=== PATIENT | female | born 1935 | race Caucasian/White ===

== ENCOUNTER 2017-01-02 00:05 | Inpatient (IN) | payer MEDICARE ==
[~2017-01-02] VITALS: Ht 149.9 cm; Wt 77.0 kg
[~2017-01-02 00:05] MED LIST: AZAT50TA35 PO; PRED10 PO; SPIR25 PO
[2017-01-02 00:18] LABS: GLUCOSE,POINT OF CARE 120 MG/DL (70-110)
[2017-01-02] MEDS ORDERED: CLON.5 PO (00:23)
[2017-01-02] MEDS ORDERED: WARF2.5 PO (00:23)
[2017-01-02] MEDS ORDERED: IPRA3AMP4 NEB (00:23)
[2017-01-02] MEDS ORDERED: AMIO200T44 PO (00:23)
[2017-01-02] MEDS ORDERED: FOLI1 PO (00:23)
[2017-01-02] MEDS ORDERED: ATOR40TA28 PO (00:23)
[2017-01-02] MEDS ORDERED: DOXY100C PO (00:23)
[2017-01-02] MEDS ORDERED: PERID15L MM (00:23)
[2017-01-02] MEDS ORDERED: PYRI50 PO (00:23)
[2017-01-02] MEDS ORDERED: ASCO500 PO (00:23)
[2017-01-02] MEDS ORDERED: CYAN500 PO (00:23)
[2017-01-02] MEDS ORDERED: FAMO20 PO (00:23)
[2017-01-02] MEDS ORDERED: FERR-89 PO (00:23)
[2017-01-02] MEDS ORDERED: METO25 PO (00:23)
[2017-01-02 01:24] LABS: BASOPHILS % (AUTO) 0.3 % (0.0-2.0); EOSINOPHILS % (AUTO) 0.4 % (1.0-6.0); HEMATOCRIT 21.2 % (36-46); HEMOGLOBIN 7.2 g/dL (12.0-16.0); LYMPHOCYTES % (AUTO) 15.5 % (22.0-44.0); MEAN CORPUSCULAR HEMOGLOBIN 31.6 pg (26.0-34.0); MEAN CORPUSCULAR VOLUME 93 fL (80-100); MONOCYTES # (AUTO) 0.5 K/uL (0.1-1.0); MONOCYTES % (AUTO) 8.7 % (2.0-9.0); NEUTROPHILS # (AUTO) 4.7 K/uL (1.8-7.7); NEUTROPHILS % (AUTO) 75.1 % (40.0-70.0); PLATELET COUNT (AUTO) 107 K/uL (150-450); RED BLOOD CELL COUNT(AUTO) 2.29 MIL/uL (4.00-5.20); RED CELL DISTRIBUTION WIDTH 20.2 % (11.5-14.5); WHITE BLOOD COUNT (AUTO) 6.3 K/uL (4.5-11.0)
[2017-01-02 01:37] LABS: PROTHROMBIN TIME 20.7 SEC (9.4-11.6)
[2017-01-02 01:51] LABS: B-TYPE NATRIURETIC PEPTIDE 485 pg/mL (0-100)
[2017-01-02 01:54] LABS: ALANINE AMINOTRANSFERASE 38 U/L (12-78); ALBUMIN 2.2 g/dL (3.4-5.0); ANION GAP 0 mmol/L (8-16); ASPARTATE AMINOTRANSFERASE 51 U/L (15-37); BILIRUBIN,TOTAL 0.3 mg/dL (0.1-1.0); CALCIUM, TOTAL 8.8 mg/dL (8.8-10.5); CHLORIDE 96 mmol/L (98-107); CREATININE 0.55 mg/dL (0.60-1.30); GLOMERULAR FILTR. RATE CALC > 60 mL/min (>60); POTASSIUM 4.6 mmol/L (3.5-5.1); SODIUM SERUM 137 mmol/L (136-145); TOTAL PROTEIN, SERUM 7.8 g/dL (6.4-8.2); UREA NITROGEN, BLOOD 11 mg/dL (7-18)
[2017-01-02 01:55] LABS: CARBON DIOXIDE 41 mmol/L (22-29)
[2017-01-02] MEDS ORDERED: IPRATROPIUM BROMIDE 0.5 MG/2.5 ML NEB SOLUTION NEB ONE (02:15)
[2017-01-02] MEDS ORDERED: ALBUTEROL SULFATE 5 MG/ML 20 ML NEB SOLN [BULK] NEB ONE (02:15)
[2017-01-02] MEDS ORDERED: 0.9% SODIUM CHLORIDE 5 ML NEB SOLUTION NEB ONE ×2 (02:24)
[2017-01-02] MEDS ORDERED: ALBUTEROL SULFATE 2.5 MG/0.5 ML NEB SOLUTION NEB ONE (02:30)
[2017-01-02 02:49] LABS: ABG A-A DIFF O2 93.3 mmHg (10-20.0); ABG BASE EXCESS 16.2 mmol/L (-2.0-3.0); ABG HCO3 37.8 mmol/L (22.0-26.0); ABG OXYHEMOGLOBIN 95.7 % (94.0-100.0); ABG PH 7.352 (7.35-7.450); TEMPERATURE, FAHRENHEIT, BG 98.6 FAHREN (96.0-98.6)
[2017-01-02 02:50] LABS: ABG PCO2 77 mmHg (35-45); ALLEN TEST, BLOOD GAS Positive
[2017-01-02] MEDS ORDERED: SODIUM CHLORIDE 0.9% 100 ML ONE (02:51)
[2017-01-02] MEDS ORDERED: IOVERSOL 320 MG/ML 100 ML VIAL ONE (02:51)
[2017-01-02] MEDS ORDERED: NITROGLYCERIN 2% (1 GM=INCH) PACKET TP ONE (03:00)
[2017-01-02] MEDS ORDERED: FUROSEMIDE 40 MG/4 ML VIAL IVP ONE (03:00)
[2017-01-02] MEDS ORDERED: LEVOFLOXACIN 750 MG/D5% WATER 150 ML IV ONE (03:00)
[2017-01-02] MEDS ORDERED: ACETAMINOPHEN 325 MG TABLET PO PRN (05:15)
[2017-01-02] MEDS ORDERED: 0.9% SODIUM CHLORIDE 10 ML SYRINGE IVP PRN ×2 (05:15→08:30)
[2017-01-02] MEDS ORDERED: ONDANSETRON HCL 4 MG/2 ML VIAL IVP PRN (05:15)
[2017-01-02] MEDS ORDERED: AMIODARONE HCL 200 MG TABLET PO ONE (05:45)
[2017-01-02] MEDS ORDERED: ALBUTEROL SULFATE 2.5 MG/0.5 ML NEB SOLUTION NEB SCH (07:00)
[2017-01-02] MEDS ORDERED: IPRATROPIUM BROMIDE 0.5 MG/2.5 ML NEB SOLUTION NEB SCH (07:00)
[2017-01-02 07:37] LABS: GLUCOSE,POINT OF CARE 100 MG/DL (70-110)
[2017-01-02] MEDS ORDERED: OxyCODONE HCL/ACETAMINOPHEN 5-325 MG TABLET PO PRN ×2 (08:30)
[2017-01-02] MEDS ORDERED: MAGNESIUM HYDROXIDE SUSPENSION 30 ML UDCUP PO PRN (08:30)
[2017-01-02] MEDS: METOPROLOL TARTRATE 25 MG TABLET PO SCH ×2 (09:00→20:15)
[2017-01-02] MEDS: PANTOPRAZOLE SODIUM 40 MG/VIAL IVP SCH (09:18)
[2017-01-02] MEDS: FUROSEMIDE 40 MG/4 ML VIAL IVP SCH (09:18)
[2017-01-02] MEDS: CHLORHEXIDINE GLUCONATE 0.12% 15 ML UDCUP ORAL RINSE MM SCH ×2 (09:19→20:15)
[2017-01-02] MEDS: DOCUSATE SODIUM 100 MG CAPSULE PO SCH ×2 (09:19→20:15)
[2017-01-02] MEDS: FOLIC ACID 1 MG TABLET PO SCH (09:19)
[2017-01-02] MEDS: CYANOCOBALAMIN 500 MCG TABLET PO SCH (09:20)
[2017-01-02] MEDS: PYRIDOXINE HCL 50 MG TABLET PO SCH (09:20)
[2017-01-02] MEDS: FAMOTIDINE 20 MG TABLET PO SCH ×2 (09:20→20:14)
[2017-01-02] MEDS: ASCORBIC ACID 500 MG TABLET PO SCH ×2 (09:23→20:15)
[2017-01-02] MEDS: CefTRIAXone 1 GM/DEXTROSE 50 ML IV SCH (10:04)
[2017-01-02 10:12] VITALS: BP 111/66
[2017-01-02] MEDS ORDERED: SODIUM CHLORIDE 0.9% 50 ML ONE (10:23)
[2017-01-02 11:20] VITALS: BP 103/52
[2017-01-02 15:58] VITALS: BP 123/57
[2017-01-02] MEDS: ClonazePAM 0.5 MG TABLET PO PRN ×2 (17:39→21:46)
[2017-01-02] MEDS: FERROUS SULFATE 325 MG EC TABLET PO SCH (17:39)
[2017-01-02 19:31] VITALS: BP 120/53
[2017-01-02] MEDS: ATORVASTATIN CALCIUM 40 MG TABLET PO SCH (20:14)
[2017-01-02] MEDS: WARFARIN SODIUM 2.5 MG TABLET PO SCH (20:15)
[2017-01-02] MEDS ORDERED: PNEUMOCOCCAL VACCINE POLYVALENT 0.5 ML VIAL [PPSV23] IM ONE (20:45)
[2017-01-02 23:16] VITALS: BP 120/55
[2017-01-03] MEDS: ClonazePAM 0.5 MG TABLET PO PRN ×2 (02:31→14:19)
[2017-01-03 04:07] VITALS: BP 134/53
[2017-01-03 05:08] LABS: GLUCOSE,POINT OF CARE 105 MG/DL (70-110)
[2017-01-03 05:18] LABS: GLUCOSE,POINT OF CARE 110 MG/DL (70-110)
[2017-01-03 06:54] LABS: BASOPHILS # (AUTO) 0.06 K/uL (0.00-0.20); BASOPHILS % (AUTO) 0.8 % (0.0-2.0); EOSINOPHILS # (AUTO) 0.07 K/uL (0.00-0.70); EOSINOPHILS % (AUTO) 0.97 % (1.0-6.0); HEMATOCRIT 24.3 % (36-46); HEMOGLOBIN 8.2 g/dL (12.0-16.0); LYMPHOCYTES # (AUTO) 1.1 K/uL (1.0-4.8); LYMPHOCYTES % (AUTO) 14.6 % (22.0-44.0); MEAN CORPUSCULAR HEMOGLOBIN 30.8 pg (26.0-34.0); MEAN CORPUSCULAR HGB CONC 33.8 G/dL (31.0-37.0); MEAN CORPUSCULAR VOLUME 91 fL (80-100); MONOCYTES # (AUTO) 0.5 K/uL (0.1-1.0); MONOCYTES % (AUTO) 7.3 % (2.0-9.0); NEUTROPHILS # (AUTO) 5.7 K/uL (1.8-7.7); NEUTROPHILS % (AUTO) 76.4 % (40.0-70.0); PLATELET COUNT (AUTO) 141 K/uL (150-450); RED BLOOD CELL COUNT(AUTO) 2.67 MIL/uL (4.00-5.20); RED CELL DISTRIBUTION WIDTH 20.4 % (11.5-14.5); WHITE BLOOD COUNT (AUTO) 7.4 K/uL (4.5-11.0)
[2017-01-03 07:32] LABS: ANION GAP 5 mmol/L (8-16); CARBON DIOXIDE 36 mmol/L (22-29); CHLORIDE 96 mmol/L (98-107); CREATININE 0.56 mg/dL (0.60-1.30); GLOMERULAR FILTR. RATE CALC > 60 mL/min (>60); POTASSIUM 3.7 mmol/L (3.5-5.1); SODIUM SERUM 137 mmol/L (136-145); UREA NITROGEN, BLOOD 8 mg/dL (7-18)
[2017-01-03 08:15] VITALS: BP 137/97
[2017-01-03] MEDS: CefTRIAXone 1 GM/DEXTROSE 50 ML IV SCH (09:21)
[2017-01-03] MEDS: CHLORHEXIDINE GLUCONATE 0.12% 15 ML UDCUP ORAL RINSE MM SCH ×2 (09:21→21:37)
[2017-01-03] MEDS: PYRIDOXINE HCL 50 MG TABLET PO SCH (09:22)
[2017-01-03] MEDS: FOLIC ACID 1 MG TABLET PO SCH (09:22)
[2017-01-03] MEDS: FERROUS SULFATE 325 MG EC TABLET PO SCH ×2 (09:22→18:00)
[2017-01-03] MEDS: PANTOPRAZOLE SODIUM 40 MG/VIAL IVP SCH (09:22)
[2017-01-03] MEDS: FAMOTIDINE 20 MG TABLET PO SCH ×2 (09:22→21:37)
[2017-01-03] MEDS: CYANOCOBALAMIN 500 MCG TABLET PO SCH (09:22)
[2017-01-03] MEDS: FUROSEMIDE 40 MG/4 ML VIAL IVP SCH (09:23)
[2017-01-03] MEDS: DOCUSATE SODIUM 100 MG CAPSULE PO SCH ×2 (09:23→21:37)
[2017-01-03] MEDS: ASCORBIC ACID 500 MG TABLET PO SCH ×2 (09:23→21:37)
[2017-01-03] MEDS: METOPROLOL TARTRATE 25 MG TABLET PO SCH ×2 (09:24→21:36)
[2017-01-03] MEDS: AMIODARONE HCL 200 MG TABLET PO SCH (09:24)
[2017-01-03 10:15] LABS: RBC MORPHOLOGY COMMENT ABNORMAL RBC MORPH
[2017-01-03] MEDS ORDERED: IPRATROPIUM BROMIDE 0.5 MG/2.5 ML NEB SOLUTION NEB PRN ×2 (11:00→15:00)
[2017-01-03] MEDS ORDERED: ALBUTEROL SULFATE 2.5 MG/0.5 ML NEB SOLUTION NEB PRN ×2 (11:00→15:00)
[2017-01-03 11:50] VITALS: BP 157/56
[2017-01-03] MEDS: AZITHROMYCIN 500 MG/NS 250 ML IV SCH (12:17)
[2017-01-03] MEDS ORDERED: IPRATROPIUM BROMIDE 0.5 MG/2.5 ML NEB SOLUTION NEB SCH (14:00)
[2017-01-03] MEDS: ALBUTEROL SULFATE 2.5 MG/0.5 ML NEB SOLUTION NEB SCH ×2 (14:00→20:00)
[2017-01-03] MEDS ORDERED: ALBUTEROL SULFATE 2.5 MG/0.5 ML NEB SOLUTION NEB SCH (14:00)
[2017-01-03] MEDS: IPRATROPIUM BROMIDE 0.5 MG/2.5 ML NEB SOLUTION NEB SCH ×2 (14:00→20:00)
[2017-01-03 15:35] VITALS: BP 145/65
[2017-01-03] MEDS ORDERED: INFLUENZA VIRUS VACCINE QVS 2017-18 (3YR+)/PF 60 MCG/0.5 ML SYRINGE IM ONE (16:15)
[2017-01-03 19:48] VITALS: BP 141/63
[2017-01-03] MEDS: ATORVASTATIN CALCIUM 40 MG TABLET PO SCH (21:37)
[2017-01-03] MEDS: WARFARIN SODIUM 2.5 MG TABLET PO SCH (21:37)
[2017-01-03 23:51] VITALS: BP 128/60
[2017-01-04] MEDS: ALBUTEROL SULFATE 2.5 MG/0.5 ML NEB SOLUTION NEB SCH ×3 (02:39→14:15)
[2017-01-04] MEDS: IPRATROPIUM BROMIDE 0.5 MG/2.5 ML NEB SOLUTION NEB SCH ×3 (02:39→14:16)
[2017-01-04 03:47] VITALS: BP 128/73
[2017-01-04] MEDS ORDERED: OXYGEN THERAPY IH SCH (08:00)
[2017-01-04 08:06] VITALS: BP 178/65
[2017-01-04] MEDS: FERROUS SULFATE 325 MG EC TABLET PO SCH ×2 (08:44→17:44)
[2017-01-04] MEDS: PANTOPRAZOLE SODIUM 40 MG/VIAL IVP SCH (08:44)
[2017-01-04] MEDS: FUROSEMIDE 40 MG/4 ML VIAL IVP SCH (08:45)
[2017-01-04] MEDS: DOCUSATE SODIUM 100 MG CAPSULE PO SCH (08:46)
[2017-01-04] MEDS: CHLORHEXIDINE GLUCONATE 0.12% 15 ML UDCUP ORAL RINSE MM SCH (08:46)
[2017-01-04] MEDS: FOLIC ACID 1 MG TABLET PO SCH (08:47)
[2017-01-04] MEDS: METOPROLOL TARTRATE 25 MG TABLET PO SCH (08:48)
[2017-01-04] MEDS: FAMOTIDINE 20 MG TABLET PO SCH (08:48)
[2017-01-04] MEDS: AMIODARONE HCL 200 MG TABLET PO SCH (08:48)
[2017-01-04] MEDS: CYANOCOBALAMIN 500 MCG TABLET PO SCH (08:49)
[2017-01-04] MEDS: PYRIDOXINE HCL 50 MG TABLET PO SCH (08:49)
[2017-01-04] MEDS: ASCORBIC ACID 500 MG TABLET PO SCH (08:50)
[2017-01-04] MEDS: CefTRIAXone 1 GM/DEXTROSE 50 ML IV SCH (08:51)
[2017-01-04] MEDS: ACETAMINOPHEN 325 MG TABLET PO PRN ×2 (08:52→17:50)
[2017-01-04 11:42] VITALS: BP 112/53
[2017-01-04] MEDS: AZITHROMYCIN 500 MG/NS 250 ML IV SCH (12:28)
[2017-01-04] MEDS: ClonazePAM 0.5 MG TABLET PO PRN (13:57)
[2017-01-04] MEDS ORDERED: ALBUTEROL SULFATE 2.5 MG/0.5 ML NEB SOLUTION NEB SCH (14:00)
[2017-01-04] MEDS ORDERED: IPRATROPIUM BROMIDE 0.5 MG/2.5 ML NEB SOLUTION NEB SCH (14:00)
[2017-01-04] MEDS ORDERED: IPRATROPIUM BROMIDE 0.5 MG/2.5 ML NEB SOLUTION NEB PRN (15:00)
[2017-01-04] MEDS ORDERED: ALBUTEROL SULFATE 2.5 MG/0.5 ML NEB SOLUTION NEB PRN (15:00)
[2017-01-04] MEDS ORDERED: AUD NEB (15:08)
[2017-01-04] MEDS ORDERED: AZITH500IV IV (15:08)
[2017-01-04] MEDS ORDERED: CEFX1I IM (15:09)
[2017-01-04] MEDS ORDERED: FURO40I IM (15:11)
[2017-01-04] MEDS ORDERED: PANT40I IV (15:11)
[2017-01-04] MEDS ORDERED: ACET-2247 PO (15:12)
[2017-01-04] MEDS ORDERED: OXYC-530 PO (15:14)
[2017-01-04 15:37] VITALS: BP 143/74
== END 2017-01-04 19:13 | disposition short-term general hospital (02) | DRG 189 ==
LOC: EMS 00:07 → 5S 05:03
PROVIDERS: ADMIT Internal Medicine; ATTEND Internal Medicine
PROC: 3E0234Z Introduction of Serum, Toxoid and Vaccine into Muscle, Percutaneous Approach (ICD-10-PCS; principal; 2017-01-02)
DX: J96.20 Acute and chronic respiratory failure, unspecified whether with hypoxia or hypercapnia (principal); E43 Unspecified severe protein-calorie malnutrition; J18.9 Pneumonia, unspecified organism; Z93.0 Tracheostomy status; I11.0 Hypertensive heart disease with heart failure; E87.2 Acidosis; I50.9 Heart failure, unspecified; I07.1 Rheumatic tricuspid insufficiency; J90 Pleural effusion, not elsewhere classified; J98.11 Atelectasis; J44.9 Chronic obstructive pulmonary disease, unspecified; I48.2 Chronic atrial fibrillation; D64.9 Anemia, unspecified; F41.9 Anxiety disorder, unspecified; I25.10 Atherosclerotic heart disease of native coronary artery without angina pectoris; E66.9 Obesity, unspecified; M19.90 Unspecified osteoarthritis, unspecified site; Z68.34 Body mass index [BMI] 34.0-34.9, adult; Z23 Encounter for immunization
CPT/HCPCS: 71260; 82805; 82962; 83605; 84145; 86850; 86900; 86901; 87040; 93005; 93306; 94640; 94644; 96365; 96366; 96375; 99285; C9113; J0456; J0696; J1940; J1956; J7050

== ENCOUNTER 2017-11-28 16:20 | Emergency (ER) | payer MEDICARE ==
[~2017-11-28] VITALS: Ht 149.9 cm; Wt 59.1 kg
[~2017-11-28 16:20] MED LIST changes: +ACET-2247 PO; +AMIO200T44 PO; +ASCO500 PO; +ATOR40TA28 PO; +AUD NEB; -AZAT50TA35 PO; +AZITH500IV IV; +CEFX1I IM; +CLON.5 PO; +CYAN500 PO; +DOXY100C PO; +FAMO20 PO; +FERR-89 PO; +FOLI1 PO; +FURO40I IM; +IPRA3AMP23 NEB; +METO25 PO; +OXYC-530 PO; +PANT40I IV; +PERID15L MM; -PRED10 PO; +PYRI50 PO; -SPIR25 PO; +WARF2.5 PO
[2017-11-28 17:33] LABS: BASOPHILS % (AUTO) 0.7 % (0.0-2.0); EOSINOPHILS % (AUTO) 0.2 % (1.0-6.0); HEMATOCRIT 25.3 % (36-46); HEMOGLOBIN 8.7 g/dL (12.0-16.0); LYMPHOCYTES # (AUTO) 0.5 K/uL (1.0-4.8); LYMPHOCYTES % (AUTO) 11.7 % (22.0-44.0); MEAN CORPUSCULAR HEMOGLOBIN 28.4 pg (26.0-34.0); MEAN CORPUSCULAR HGB CONC 34.5 G/dL (31.0-37.0); MEAN CORPUSCULAR VOLUME 82 fL (80-100); MONOCYTES # (AUTO) 0.2 K/uL (0.1-1.0); MONOCYTES % (AUTO) 5.5 % (2.0-9.0); NEUTROPHILS # (AUTO) 3.3 K/uL (1.8-7.7); NEUTROPHILS % (AUTO) 81.9 % (40.0-70.0); RED BLOOD CELL COUNT(AUTO) 3.08 MIL/uL (4.00-5.20); RED CELL DISTRIBUTION WIDTH 19.1 % (11.5-14.5)
[2017-11-28 17:37] LABS: ALANINE AMINOTRANSFERASE 21 U/L (12-78); ALBUMIN 2.2 g/dL (3.4-5.0); ALKALINE PHOSPHATASE 84 U/L (46-116); ANION GAP 4 mmol/L (8-16); ASPARTATE AMINOTRANSFERASE 32 U/L (15-37); BILIRUBIN,TOTAL 0.7 mg/dL (0.1-1.0); CALCIUM, TOTAL 8.4 mg/dL (8.8-10.5); CARBON DIOXIDE 27 mmol/L (22-29); CHLORIDE 91 mmol/L (98-107); CREATINE KINASE, TOTAL 43 U/L (26-192); CREATININE 0.73 mg/dL (0.60-1.30); GLUCOSE,RANDOM 96 mg/dL (70-110); POTASSIUM 4.3 mmol/L (3.5-5.1); TOTAL PROTEIN, SERUM 7.5 g/dL (6.4-8.2); UREA NITROGEN, BLOOD 14 mg/dL (7-18)
[2017-11-28 17:39] LABS: SODIUM SERUM 122 mmol/L (136-145)
[2017-11-28 17:40] LABS: GLOMERULAR FILTR. RATE CALC > 60 mL/min (>60); PROTHROMBIN TIME 10.7 SEC (9.4-11.6)
[2017-11-28 17:53] LABS: LACTIC ACID 1.1 mmol/L (0.4-2.0)
[2017-11-28 18:04] LABS: PLATELET COUNT (AUTO) 54 K/uL (150-450)
[2017-11-28 18:05] LABS: B-TYPE NATRIURETIC PEPTIDE 516 pg/mL (0-100)
[2017-11-28] MEDS ORDERED: LEVALBUTEROL HCL 0.63 MG/3 ML NEB SOLUTION NEB ONE (19:45)
[2017-11-28] MEDS ORDERED: 0.9% SODIUM CHLORIDE 5 ML NEB SOLUTION NEB ONE (19:50)
[2017-11-28] MEDS ORDERED: FUROSEMIDE 40 MG/4 ML VIAL IVP ONE (20:00)
[2017-11-28 20:58] LABS: APPEARANCE,URINE CLOUDY (CLEAR); BILIRUBIN,URINE NEGATIVE (NEGATIVE); GLUCOSE, URINE (UA) NEGATIVE (NEGATIVE); KETONES,URINE NEGATIVE (NEGATIVE); LEUKOCYTE ESTERASE ,URINE NEGATIVE (NEGATIVE); NITRATE,URINE NEGATIVE (NEGATIVE); OCCULT BLOOD,URINE NEGATIVE (NEGATIVE); PROTEIN,URINE POS 1+ (NEGATIVE); UROBILINOGEN,URINE 0.2 mg/dL (<=1.0)
[2017-11-28 21:28] LABS: RBC,URINE None Seen /HPF (0-2); WBC,URINE 0-2 /HPF (0-5)
[2017-11-28 21:29] LABS: BACTERIA,URINE Few /HPF (None Seen)
[2017-11-28 21:39] LABS: SQUAMOUS EPITHELIAL CELL,UR Few /LPF (None Seen)
[2017-11-28 21:41] LABS: COARSE GRANULAR CASTS,URINE 0-2 /LPF (None Seen)
[2017-11-28 22:08] VITALS: BP 104/55
== END 2017-11-28 22:53 | disposition short-term general hospital (02) ==
LOC: EMS 16:22
DX: I50.9 Heart failure, unspecified (principal); E87.1 Hypo-osmolality and hyponatremia; D69.6 Thrombocytopenia, unspecified; D64.9 Anemia, unspecified
CPT/HCPCS: 36415; 71046; 80053; 81001; 82550; 83605; 83880; 84484; 85025; 85610; 85730; 87040; 93005; 94640; 96374; 99285; J1940